=== PATIENT | female | born 1950 | race Caucasian/White ===

== ENCOUNTER 2017-02-18 12:40 | Outpatient (CLI) | payer OTHER ==
--- NOTE | 2017-02-18 13:29 | DIAGNOSTIC IMAGING REPORT ---
PROCEDURE: DEXA BONE DENSITY STUDY CLINICAL INDICATION: OSTEOPENIA COMPARISON: DEXA 12/26/2014 FINDINGS: LUMBAR SPINE: Bone mineral density 0.813 g/cm2, T score -2.1 osteopenia which represents a 5.3% decrease from the previous study LEFT HIP: Bone mineral density 0.878 g/cm2, T score -0.5 normal which represents a 3.1% improvement from the previous study LEFT FEMORAL NECK: Bone mineral density 0.665 g/cm2, T score -1.7 osteopenia which represents a 10% decrease from the previous study FRACTURE RISK CALCULATION ( when applicable): 10-year fracture risk of a major osteoporotic fracture 8.1% and of a hip fracture 1.6% (T score greater or equal to -1.0 to: NORMAL) (T score from -1.1 to -2.4: OSTEOPENIA) (T score ess than or equal to -2.5: OSTEOPOROSIS) IMPRESSION: 1. Osteopenia lumbar spine and femoral neck with 5.3 and 10% decreases in bone mineral density from the previous study
--- NOTE | 2017-02-18 13:33 | DIAGNOSTIC IMAGING REPORT ---
PROCEDURE: MG BILATERAL SCREENING W/CAD INDICATION: Screening. Family history breast carcinoma (mother, sister). TECHNIQUE: Bilateral CC and MLO digital views. COMPARISON: Compared to 12/26/2014, 07/27/2012, and 07/23/2009. FINDINGS: Computer-aided detection applied. Moderately dense with a few dystrophic calcifications. No change. IMPRESSION: 1. Negative mammogram. RESULT CODE: 1- Negative. A. A negative report should not delay biopsy if a dominant or clinically suspicious mass is present. 10-15% of cancers are not identified by x-ray. B. A negative report may reinforce clinical impression. C. Adenosis and dense breasts may obscure an underlying neoplasm. D. False positive reports average 6-10%. E.. A yearly screening mammogram is recommended. A reminder letter will be scheduled.
== END 2017-02-18 23:00 ==
LOC: MAM SRH 12:40
DX: Z12.31 Encounter for screening mammogram for malignant neoplasm of breast (principal); Z80.3 Family history of malignant neoplasm of breast; M85.89 Other specified disorders of bone density and structure, multiple sites

== ENCOUNTER 2017-02-25 12:34 | Outpatient (CLI) | payer OTHER ==
--- NOTE | 2017-02-25 13:20 | DIAGNOSTIC IMAGING REPORT ---
PROCEDURE: XR SHOULDER 2 OR MORE VW-LEFT INDICATION: L SHOULDER PAIN TECHNIQUE: Three views. COMPARISON: None. FINDINGS: Osseous structures and joint spaces are normal. IMPRESSION: 1. Normal left shoulder.
== END 2017-02-25 23:00 ==
LOC: XR SRH 12:34
DX: M25.512 Pain in left shoulder (principal)